=== PATIENT | female | born 1985 | race Caucasian/White ===

== ENCOUNTER 2020-08-07 20:48 | Emergency (ER) | payer MEDICAID, SELFPAY ==
[2020-08-07] VITALS (8 sets, daily range): BP systolic 128–151; BP diastolic 85–105; PULSE 86–127; RESP 18–28; TEMP 36.8; O2SAT 91–97; BMI 21.4
--- NOTE | 2020-08-07 21:03 | XRR_ITS ---
PROCEDURE INFORMATION: Exam: XR Chest, 1 View Exam date and time: 08/07/2020 9:09 PM Age: 34 years old Clinical indication: Shortness of breath; Right-sided chest pain; Additional info: SOB TECHNIQUE: Imaging protocol: XR of the chest Views: 1 view. COMPARISON: No relevant prior studies available. FINDINGS: Lungs: Lungs are clear bilaterally. Pleural space: No pleural effusion. No pneumothorax. Heart/Mediastinum: The cardiac silhouette and mediastinal contours are unremarkable. Bones/joints: Unremarkable for age. XR/XR chest 1V portable [id number] IMPRESSION: No acute cardiopulmonary process.
--- NOTE | 2020-08-07 21:13 | ECG_ITS ---
[facility] Test Date: 2020-08-07 Pat Name: Juliane Ball Department: Room: Gender: Female Bunch Maker: : 1985 Requested By: Azam Dee Order Number: [id number] Robbins MD: Mimi Cm M.D. Measurements Intervals [place] Rate: 122 P: 81 MD: 112 QRS: 79 QRSD: 88 T: 57 QT: 316 QTc: 451 Interpretive Statements SINUS TACHYCARDIA WITH SHORT MD INTERVAL ABNORMAL RHYTHM ECG No previous ECG available for comparison Electronically Signed On 08-07-2020 23:17:37 CENTER LEAD CONSULTANT by Mimi Cm M.D. [id number]
[2020-08-07 21:31] LABS: ABG PCO2 31.5 mmHg (35-45); ABG PH Result 7.46 (7.35-7.45); Arterial Blood Gas Hematocrit 43.9 % (37-47); Base Excess ABG -0.6 mmol/L (-2.0-2.0); Blood Gas Allen Test Pos; Blood Gas LPM 2.5 %; Blood Gas Sample Site Brachial, right; Blood Gas Sample Type Arterial; Carboxyhemoglobin 1.9 %THgb (0.4-20.1); HCO3 ABG 22.4 mmol/L (22-26); Methemoglobin 0.6 % (0.4-1.5); Oxygen Device NC; PO2 ABG 59.3 mmHg (80.0-100.0); Total Hemoglobin 14.3 g/dL (12-16)
--- NOTE | 2020-08-07 21:52 | W.ED.SOB ---
HPI - SOB/Dyspnea General: Chief Complaint: Shortness of Breath/Dyspnea Stated Complaint: CONFIRMED WALKING PNEUMONIA/O2 WAS 88% Time Seen by Provider: 08/07/20 21:03 History of Present Illness: HPI Narrative: 34-year-old type I diabetic with a history of walking pneumonia last week. She was Covid negative at that point. She was placed on Levaquin with improvement. Yesterday was her last dose. Today she had sudden onset of right-sided chest pain with significant shortness of breath. She presents with tachypnea and right-sided chest discomfort. MD elicited complaint: shortness of breath Pertinent past history: asthma Onset (ago): hour(s) Context: recent illness Severity: moderate Exacerbating factors: exertion, movement and coughing Relieving factors: oxygen Known history of: asthma Associated symptoms: Reports chest congestion, chest pain and cough; Deny abdominal pain, dizziness, fever(s), nausea or vomiting Review of Systems Const: Denies: fever(s) or chills Eyes: Denies: change in vision ENMT: Denies: odynophagia, swelling of lips/tongue, post nasal drip or sinus pain Card: Reports: chest pain Resp: Reports: chest congestion GI: Denies: abdominal pain, nausea or vomiting : Denies: dysuria or hematuria Musc: Reports: back pain; Denies: neck pain Skin/Breast: Denies: rash, pruritus or erythema Neuro: Denies: headache(s), dizziness or vertigo Psych: Denies: anxiety PFSH ED PFSH: Medical History (Updated 08/07/20 @ 23:53 by Nithin Adame MD) Asthma T1DM (type 1 diabetes mellitus) Surgical History (Updated 08/07/20 @ 23:54 by Nithin Adame MD) No pertinent past surgical history Social History (Updated 08/07/20 @ 23:53 by Nithin Adame MD) Smoking and tobacco status: current every day smoker Alcohol intake: never Substance/Drug Use: never Current occupational status: employed Current occupation: Works at [employer] Physical Exam Const: GENERAL APPEARANCE: cooperative and in distress ORIENTATION/CONSCIOUSNESS: Yes oriented to person, Yes oriented to place and Yes oriented to time HENMT: COMMON NORMALS: normocephalic, external ears normal and Normal external nose present HEAD & SCALP: normocephalic; no scalp tenderness FACE & SINUS: normal facial exam NOSE: Normal external nose present and No nasal discharge present EXTERNAL EAR: Yes external ears normal Eye: COMMON NORMALS: Equal, round and reactive pupils present, EOMs intact bilaterally and conjunctivae normal EYELID: eyelids normal CONJUNCTIVA: Yes conjunctivae normal PUPIL: Yes Equal, round and reactive pupils present Neck/C-Spine: GENERAL: No tracheal deviation Chest: COMMONS NORMALS: normal inspection of the chest CHEST: No tenderness Resp: EFFORT & INSPECTION: Yes tachypneic, Yes respiratory distress, No retractions, Yes uses accessory muscles and No tracheal deviation AUSCULTATION: rhonchi, no wheezes and diminished lung sounds Cardio: COMMON NORMALS: regular rhythm RATE: tachycardic RHYTHM: regular rhythm HEART SOUNDS: no murmurs PERIPHERAL PULSES: radial pulses present GI: INSPECTION: No abdominal distension AUSCULTATION: No Hyperactive bowel sounds present and No Hypoactive bowel sounds present PALPATION: No Guarding due to palpation present (GI) and No Rigid due to palpation PERCUSSION: no dullness to percussion and no tympanic to percussion Neuro: SENSORIUM/ORIENTATION: Yes oriented to person, Yes oriented to place and Yes oriented to time Psych: COMMON NORMALS: mental status grossly normal Skin: COMMON NORMALS: no rashes or lesions noted GENERAL SKIN EXAM: no rashes or lesions noted Course Consultations: Consultation #1: dena Vital Signs: Vital signs: Vital Signs Temperature 98.2 F 08/07/20 20:53 Pulse Rate 88 08/07/20 23:53 Respiratory Rate 21 H 08/07/20 23:53 Blood Pressure 128/98 08/07/20 23:30 Pulse Oximetry 97 08/07/20 23:53 MDM - SOB/Dyspnea MDM Narrative: Medical decision making narrative: 34-year-old type I diabetic with a history of asthma. She presents in mild respiratory distress, not moving a whole lot of air, and wheezing. She had tested Covid negative as an outpatient a week ago. Her rapid is negative here as well. White cell count is mildly elevated. Her electrolytes are benign. Her chest x-ray is negative. Her D-dimer is negative. Her troponin is negative. Her EKG shows no acute ST changes. She is requiring 5 L of oxygen at this point, now saturating 96%. She is mildly tachycardic. After nebulizer treatment she is using more, and moving more air. Solu-Medrol was ordered but the patient refused due to problems with her blood sugar. She will be admitted for asthma exacerbation with hypoxic respiratory failure. Lab Data: Labs: Lab Results 08/07/20 08/07/20 08/07/20 Range/Units 21:20 21:54 21:54 WBC 15.5 H (4.0-10.0) 10^3/ uL RBC 4.89 (4.1-5.3) 10^6/u L Hgb 14.2 (11.5-15.3) g/dL Hct 42.5 (37.0-47.0) % MCV 86.9 (81-99) fL MCH 29.0 (28.0-34.0) pg MCHC 33.4 (30.0-36.0) g/dL RDW 12.3 (12.1-15.1) % Plt Count 273 (130-400) 10^3/c mm MPV 10.5 H (7.4-10.4) fL Neut % (Auto) 54.7 % Lymph % (Auto) 17.4 % Scott % (Auto) 3.9 % Eos % (Auto) 23.1 % Baso % (Auto) 0.6 % Neut # (Auto) 8.49 H (1.8-7.7) 10^3/u L Lymph # (Auto) 2.7 (0.8-4.8) 10^3/u L Scott # (Auto) 0.6 (0.2-0.9) 10^3/u L Eos # (Auto) 3.6 H (0.0-0.8) 10^3/u L Baso # (Auto) 0.1 (0.0-0.1) 10^3/u L Nucleated RBC % (a uto) 0 % Nucleated RBCs # 0.0 /100WBC D-Dimer 0.46 (0-0.59) ug/mIFE U Specimen Type Arterial Sample Site Brachial, right ABG pH 7.46 H (7.35-7.45) ABG pCO2 31.5 L (35-45) mmHg ABG pO2 59.3 L (80.0-100.0) mmH g ABG HCO3 22.4 (22-26) mmol/L ABG Base Excess -0.6 (-2.0-2.0) mmol/ L Nir Test Pos Hematocrit 43.9 (37-47) % Hgb O2 Saturation 91.0 L (95-100) % Carboxyhemoglobin 1.9 (0.4-20.1) %THgb Methemoglobin 0.6 (0.4-1.5) % Total Hemoglobin 14.3 (12-16) g/dL O2 Delivery Device Nc O2 Liters/Min 2.5 % FiO2 28.0 % Lead Front End Developer ID [id number] Sodium (136-145) mmol/L Potassium (3.5-5.1) mmol/L Chloride (98-107) mmol/L Carbon Dioxide (22-29) mmol/L Anion Gap (5-19) BUN (6-20) mg/dL Creatinine (0.5-0.9) mg/dL GFR Calculation (90-130) mL/min Glucose (65-115) mg/dL Calculated Osmolal ity (285-295) mOsm/k g Lactic Acid (0.5-2.2) mmol/L Calcium (8.5-10.5) mg/dL Total Bilirubin (0.15-1.2) mg/dL AST (0-32) U/L ALT (0-33) U/L Alkaline Phosphata se (35-105) IU/L Troponin T Baselin e (0-10) ng/L NT-Pro-B Natriuret Pep (0-125) pg/mL Total Protein (6.6-8.7) g/dL Albumin (3.5-5.2) g/dL Globulin (1.3-4.6) g/dL SARS-CoV-2 Ag (Rap id) 08/07/20 08/07/20 08/07/20 Range/Units 21:54 21:54 21:54 WBC (4.0-10.0) 10^3/ uL RBC (4.1-5.3) 10^6/u L Hgb (11.5-15.3) g/dL Hct (37.0-47.0) % MCV (81-99) fL MCH (28.0-34.0) pg MCHC (30.0-36.0) g/dL RDW (12.1-15.1) % Plt Count (130-400) 10^3/c mm MPV (7.4-10.4) fL Neut % (Auto) % Lymph % (Auto) % Scott % (Auto) % Eos % (Auto) % Baso % (Auto) % Neut # (Auto) (1.8-7.7) 10^3/u L Lymph # (Auto) (0.8-4.8) 10^3/u L Scott # (Auto) (0.2-0.9) 10^3/u L Eos # (Auto) (0.0-0.8) 10^3/u L Baso # (Auto) (0.0-0.1) 10^3/u L Nucleated RBC % (a uto) % Nucleated RBCs # /100WBC D-Dimer (0-0.59) ug/mIFE U Specimen Type Sample Site ABG pH (7.35-7.45) ABG pCO2 (35-45) mmHg ABG pO2 (80.0-100.0) mmH g ABG HCO3 (22-26) mmol/L ABG Base Excess (-2.0-2.0) mmol/ L Nir Test Hematocrit (37-47) % Hgb O2 Saturation (95-100) % Carboxyhemoglobin (0.4-20.1) %THgb Methemoglobin (0.4-1.5) % Total Hemoglobin (12-16) g/dL O2 Delivery Device O2 Liters/Min % FiO2 % Lead Front End Developer ID Sodium 131 L (136-145) mmol/L Potassium 3.5 (3.5-5.1) mmol/L Chloride 98 (98-107) mmol/L Carbon Dioxide 22 (22-29) mmol/L Anion Gap 14.5 (5-19) BUN 7 (6-20) mg/dL Creatinine 0.7 (0.5-0.9) mg/dL GFR Calculation 95.8 (90-130) mL/min Glucose 287 H (65-115) mg/dL Calculated Osmolal ity 280 L (285-295) mOsm/k g Lactic Acid 1.1 (0.5-2.2) mmol/L Calcium 9.5 (8.5-10.5) mg/dL Total Bilirubin 0.4 (0.15-1.2) mg/dL AST 12 (0-32) U/L ALT 8 (0-33) U/L Alkaline Phosphata se 58 (35-105) IU/L Troponin T Baselin e 6 (0-10) ng/L NT-Pro-B Natriuret Pep 108 (0-125) pg/mL Total Protein 7.2 (6.6-8.7) g/dL Albumin 4.2 (3.5-5.2) g/dL Globulin 3.0 (1.3-4.6) g/dL SARS-CoV-2 Ag (Rap id) 08/07/20 08/07/20 Range/Units 22:03 22:03 WBC (4.0-10.0) 10^3/ uL RBC (4.1-5.3) 10^6/u L Hgb (11.5-15.3) g/dL Hct (37.0-47.0) % MCV (81-99) fL MCH (28.0-34.0) pg MCHC (30.0-36.0) g/dL RDW (12.1-15.1) % Plt Count (130-400) 10^3/c mm MPV (7.4-10.4) fL Neut % (Auto) % Lymph % (Auto) % Scott % (Auto) % Eos % (Auto) % Baso % (Auto) % Neut # (Auto) (1.8-7.7) 10^3/u L Lymph # (Auto) (0.8-4.8) 10^3/u L Scott # (Auto) (0.2-0.9) 10^3/u L Eos # (Auto) (0.0-0.8) 10^3/u L Baso # (Auto) (0.0-0.1) 10^3/u L Nucleated RBC % (a uto) % Nucleated RBCs # /100WBC D-Dimer (0-0.59) ug/mIFE U Specimen Type Sample Site ABG pH (7.35-7.45) ABG pCO2 (35-45) mmHg ABG pO2 (80.0-100.0) mmH g ABG HCO3 (22-26) mmol/L ABG Base Excess (-2.0-2.0) mmol/ L Nir Test Hematocrit (37-47) % Hgb O2 Saturation (95-100) % Carboxyhemoglobin (0.4-20.1) %THgb Methemoglobin (0.4-1.5) % Total Hemoglobin (12-16) g/dL O2 Delivery Device O2 Liters/Min % FiO2 % Lead Front End Developer ID Sodium (136-145) mmol/L Potassium (3.5-5.1) mmol/L Chloride (98-107) mmol/L Carbon Dioxide (22-29) mmol/L Anion Gap (5-19) BUN (6-20) mg/dL Creatinine (0.5-0.9) mg/dL GFR Calculation (90-130) mL/min Glucose (65-115) mg/dL Calculated Osmolal ity (285-295) mOsm/k g Lactic Acid (0.5-2.2) mmol/L Calcium (8.5-10.5) mg/dL Total Bilirubin (0.15-1.2) mg/dL AST (0-32) U/L ALT (0-33) U/L Alkaline Phosphata se (35-105) IU/L Troponin T Baselin e (0-10) ng/L NT-Pro-B Natriuret Pep (0-125) pg/mL Total Protein (6.6-8.7) g/dL Albumin (3.5-5.2) g/dL Globulin (1.3-4.6) g/dL SARS-CoV-2 Ag (Rap id) Cancelled Negative Discharge Plan Discharge Prescriptions: No Action NOVOLOG See Rx Instructions .ROUTE .COMPLEX RF: 0 Lantus U-100 Insulin 100 unit/mL solution 19 unit SUBCUT DAILY RF: 0 albuterol sulfate [ProAir HFA] 90 mcg/actuation HFA aerosol inhaler 2 puff INHALATION QID PRN (Reason: shortness of breath or wheezing) Qty: 8.5 RF: 0 Vitamin D3 1 tab PO DAILY RF: 0 Coding Level of Care Code ED Log Inspector for Chg Fwd Exam Comprehensive
--- NOTE | 2020-08-07 22:08 | PC.NURSE ---
Patient concerned about medication causing hyperglycemia. Physician notified.
[2020-08-07 22:31] LABS: Lactic Sepsis W/Reflex 1.1 mmol/L (0.5-2.2)
[2020-08-07 22:34] LABS: Troponin(5th) Baseline 6 ng/L (0-10)
[2020-08-07 22:38] LABS: Basophils # 0.1 10^3/uL (0.0-0.1); Basophils % 0.6 %; Eosinophils # 3.6 10^3/uL (0.0-0.8); Eosinophils % 23.1 %; Hematocrit 42.5 % (37.0-47.0); Hemoglobin 14.2 g/dL (11.5-15.3); Lymphocytes # 2.7 10^3/uL (0.8-4.8); Lymphocytes % 17.4 %; Mean Corpuscular HGB Conc 33.4 g/dL (30.0-36.0); Mean Corpuscular Volume 86.9 fL (81-99); Mean Platelet Volume 10.5 fL (7.4-10.4); Monocytes # 0.6 10^3/uL (0.2-0.9); Monocytes % 3.9 %; Neutrophils # 8.49 10^3/uL (1.8-7.7); Neutrophils % 54.7 %; Nucleated Red Blood Cells % 0 %; Platelet Count 273 10^3/cmm (130-400); Red Blood Count 4.89 10^6/uL (4.1-5.3); Red Cell Distribution Width 12.3 % (12.1-15.1); White Blood Count 15.5 10^3/uL (4.0-10.0)
[2020-08-07 22:43] LABS: Alanine Aminotransferase 8 U/L (0-33); Albumin Level 4.2 g/dL (3.5-5.2); Alkaline Phosphatase 58 IU/L (35-105); Anion Gap 14.5 (5-19); Aspartate Amino Transferase 12 U/L (0-32); Blood Urea Nitrogen 7 mg/dL (6-20); Calcium 9.5 mg/dL (8.5-10.5); Carbon Dioxide 22 mmol/L (22-29); Chloride 98 mmol/L (98-107); Glomerular Filtration Rate 95.8 mL/min (90-130); Glucose 287 mg/dL (65-115); NT Pro B Type Natriuretic Pept 108 pg/mL (0-125); Osmolality Calculated 280 mOsm/kg (285-295); Potassium 3.5 mmol/L (3.5-5.1); Sodium 131 mmol/L (136-145); Total Bilirubin 0.4 mg/dL (0.15-1.2); Total Protein 7.2 g/dL (6.6-8.7)
[2020-08-07 22:51] LABS: SARS Covid-2 Antigen Negative (Negative)
[2020-08-07 23:11] LABS: D Dimer 0.46 ug/mIFEU (0-0.59)
--- NOTE | 2020-08-07 23:13 | ECG_ITS ---
[facility] Test Date: 2020-08-07 Pat Name: Juliane Ball Department: Room: Gender: Female Vice Chairman: : 1985 Requested By: Azam Dee Order Number: [id number] Robbins MD: Clifton Phillips M.D. Measurements Intervals [place] Rate: 96 P: 77 SD: 127 QRS: 77 QRSD: 85 T: 58 QT: 341 QTc: 431 Interpretive Statements SINUS RHYTHM WITH SINUS ARRHYTHMIA POSSIBLE LEFT ATRIAL ENLARGEMENT [-0.1mV P WAVE IN V1/V2] Compared to ECG 08/07/2020 21:18:36 Sinus tachycardia no longer present Short SD interval no longer present Electronically Signed On 08-09-2020 19:20:35 BOX TRUCK WASHER by Clifton Phillips M.D. [id number]
[2020-08-07] MEDS: ipratropium-albuterol 3 mL Neb INHALATION (23:42)
--- NOTE | 2020-08-07 23:51 | PM.HP ---
Providers/Chief Complaint Primary Care Provider: Bernadine Barajas NP Chief Complaint: CONFIRMED WALKING PNEUMONIA/O2 WAS 88% History of Present Illness Juliane Ball is a 34 year old female Medications/Allergies Home Medications Medication Instructions Recorded Confirmed Last Taken Type NOVOLOG See Rx Instructions .ROUTE .COMPLEX 12/28/19 08/07/20 08/07/20 History insulin glargine 100 unit/mL 19 unit SUBCUT DAILY ml 12/28/19 08/07/20 08/06/20 History subcutaneous solution albuterol sulfate 90 mcg/actuation 2 puff INHALATION QID PRN #8.5 gm 07/20/20 08/07/20 08/07/20 Rx aerosol inhaler Vitamin D3 1 tab PO DAILY 08/07/20 08/07/20 08/06/20 History Allergies Allergy/AdvReac Type Severity Reaction Status Date / Time levofloxacin Allergy ALGY-Hives Verified 08/07/20 21:20 PFSH Acute PFSH: Medical History (Updated 08/07/20 @ 23:53 by Nithin Adame MD) Asthma T1DM (type 1 diabetes mellitus) Surgical History (Updated 08/07/20 @ 23:54 by Nithin Adame MD) No pertinent past surgical history Social History (Updated 08/07/20 @ 23:53 by Nithin Adame MD) Smoking and tobacco status: current every day smoker Alcohol intake: never Substance/Drug Use: never Current occupational status: employed Current occupation: Works at [employer] Vitals/I&O/Wt Last Vital Signs Temp 98.2 F 08/07/20 20:53 Pulse 86 08/07/20 23:42 Resp 20 H 08/07/20 23:42 BP 128/98 08/07/20 23:30 Pulse Ox 94 08/07/20 23:42 Weight last 48 hrs Weight 65.771 kg Data : 08/07/20 21:54 08/07/20 21:54 Micro: Microbiology 08/07/20 22:43 Blood Culture - Preliminary Blood SPECIMEN COLLECTED 08/07/20 22:43 Blood Culture - Preliminary Blood SPECIMEN COLLECTED Coding Level of Care Code Acute Golf Course Keeper for Niyah Acuña
[2020-08-08] VITALS: BP 139/108; PULSE 107; RESP 22; O2SAT 91
[2020-08-08 00:23] LABS: Troponin 5 2HR Delta 0 ABS# (0-10)
[2020-08-08 01:00] VITALS: BP 126/86; PULSE 87; RESP 16; O2SAT 94
[2020-08-08] MEDS: ipratropium-albuterol 3 mL Neb INHALATION (01:44)
[2020-08-08 01:45] VITALS: PULSE 88; RESP 18; O2SAT 90
[2020-08-08 02:06] VITALS: BP 111/85; PULSE 101; RESP 17; TEMP 36.8; O2SAT 93
[2020-08-10 03:00] LABS: Coronavirus Lab Test PTC Negative
--- NOTE | 2020-08-10 08:45 | PC.NURSE ---
notified pt of negative COVID results
== END 2020-08-08 02:06 | disposition left against medical advice (07) ==
PROVIDERS: Emergency Provider Emergency Medicine; PCP Nurse Practitioner
DX: J96.21 Acute and chronic respiratory failure with hypoxia (principal); J45.901 Unspecified asthma with (acute) exacerbation; E10.8 Type 1 diabetes mellitus with unspecified complications; Z79.4 Long term (current) use of insulin; F17.200 Nicotine dependence, unspecified, uncomplicated; Z53.29 Procedure and treatment not carried out because of patient's decision for other reasons
CPT/HCPCS: 12345; 36415; 36600; 71045; 80053; 82805; 83605; 83880; 84484; 85025; 85378; 87040; 87426; 87635; 93005; 94640; 96374; 99283; 99284

== ENCOUNTER → 2021-07-06 14:11 | Outpatient (BNVA) | payer MEDICAID, SELFPAY | PROVIDERS: PCP Nurse Practitioner; Referring Provider Nurse Practitioner; Visit Provider Internal Medicine | DX: E10.9 Type 1 diabetes mellitus without complications (principal); Z79.4 Long term (current) use of insulin; F17.210 Nicotine dependence, cigarettes, uncomplicated | CPT/HCPCS: 99204 ==

== ENCOUNTER → 2021-07-26 10:45 | Outpatient (BNVA) | payer MEDICAID, SELFPAY | PROVIDERS: PCP Nurse Practitioner; Visit Provider Specialist | DX: S69.92XA Unspecified injury of left wrist, hand and finger(s), initial encounter (principal); M89.8X3 Other specified disorders of bone, forearm; W01.0XXA Fall on same level from slipping, tripping and stumbling without subsequent striking against object, initial encounter | CPT/HCPCS: 73090; 73110 ==

== ENCOUNTER 2021-07-26 11:36 | Outpatient (CLI) | payer MEDICAID, SELFPAY | END 2021-07-26 11:37 | disposition home or self-care (01) | LOC: SPT 13:51 | PROVIDERS: PCP Nurse Practitioner; Visit Provider Specialist | DX: Z46.89 Encounter for fitting and adjustment of other specified devices (principal) | CPT/HCPCS: L3908 ==

== ENCOUNTER → 2021-09-29 09:02 | Outpatient (BNVA) | payer MEDICAID, SELFPAY | PROVIDERS: PCP Nurse Practitioner; Visit Provider Internal Medicine | DX: E10.9 Type 1 diabetes mellitus without complications (principal); E16.0 Drug-induced hypoglycemia without coma; T38.3X5A Adverse effect of insulin and oral hypoglycemic [antidiabetic] drugs, initial encounter; F17.200 Nicotine dependence, unspecified, uncomplicated; Z79.4 Long term (current) use of insulin | CPT/HCPCS: 99214 ==

== ENCOUNTER → 2021-10-13 09:43 | Outpatient (BNVA) | payer MEDICAID, SELFPAY | PROVIDERS: PCP Nurse Practitioner; Visit Provider Internal Medicine | DX: E10.9 Type 1 diabetes mellitus without complications (principal); E16.0 Drug-induced hypoglycemia without coma; T38.3X5A Adverse effect of insulin and oral hypoglycemic [antidiabetic] drugs, initial encounter; Z79.4 Long term (current) use of insulin; F17.210 Nicotine dependence, cigarettes, uncomplicated | CPT/HCPCS: 99214 ==

== ENCOUNTER → 2022-01-27 10:11 | Outpatient (BNVA) | payer MEDICAID, SELFPAY | PROVIDERS: PCP Nurse Practitioner; Visit Provider Internal Medicine | DX: E10.649 Type 1 diabetes mellitus with hypoglycemia without coma (principal); E10.65 Type 1 diabetes mellitus with hyperglycemia; T38.3X5A Adverse effect of insulin and oral hypoglycemic [antidiabetic] drugs, initial encounter; E16.0 Drug-induced hypoglycemia without coma; E03.9 Hypothyroidism, unspecified; Z79.4 Long term (current) use of insulin; F17.200 Nicotine dependence, unspecified, uncomplicated | CPT/HCPCS: 99214 ==

== ENCOUNTER 2022-01-28 17:19 | Emergency (ER) | payer MEDICAID, SELFPAY ==
[2022-01-28 17:26] VITALS: BP 142/96; PULSE 136; RESP 20; TEMP 37.4; O2SAT 98; BMI 26.2
--- NOTE | 2022-01-28 17:36 | ED_ITS ---
HPI - General Adult General: Chief complaint: General Medical Stated complaint: Bloodsugars are irregular, shaking real bad Time Seen by Provider: 01/28/22 17:35 History of Present Illness: Ms. Ball is a 36-year-old lady with significant past medical history of type 1 diabetes who presents to the emergency department due to uncontrolled blood glucose and generalized illness. She first noticed symptoms starting this morning after which she woke up. She has felt shaky all day and generalized illness. She has had increased thirst and urination. She has noted blood sugars in the 400 range which is atypical of her baseline which is more in the low 200 range. Despite increasing insulin she has not had significant leaf. The shakiness is more typical of low blood sugars and she has not had symptoms like this with high blood sugar that she can recall. No recent hospitalizations or prior hospitalizations for diabetic issues. No sick contacts. Denies focal infectious symptoms. Intensity of symptoms is moderate to severe. Course has persisted. No other specific cirilo nges in health, exacerbating, or alleviating factors identified. 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 Mother No problems noted. Social History Smoking and tobacco status: current every day smoker Quit status (tobacco): not considering quitting Second hand smoke exposure: Yes Smoking risk assessment/counseling performed?: Yes Alcohol intake: never Desire information about alcohol rehabilitation?: No Counseling given: Yes Desire information about substance/drug rehabilitation?: No Counseling given: No Adopted: No Caregiver/support person: No Lives independently: Yes Household members: spouse Housing: House Marital status: Number of children: 1 Highest education level completed: High School Graduate Current occupational status: employed Current occupation: Works at [employer] History of recent travel: No Physical Exam Const: COMMON NORMALS: alert GENERAL APPEARANCE: cooperative, well developed and ill appearing (moderately) HENMT: COMMON NORMALS: normocephalic and atraumatic HEAD & SCALP: normocephalic and atraumatic Eye: COMMON NORMALS: conjunctivae normal CONJUNCTIVA: Yes conjunctivae normal SCLERA: sclerae normal Neck/C-Spine: COMMON NORMALS: supple GENERAL: Yes trachea midline Resp: COMMON NORMALS: clear to auscultation bilaterally EFFORT & INSPECTION: Yes able to speak in complete sentences AUSCULTATION: clear to auscultation bilaterally Cardio: COMMON NORMALS: regular rhythm RATE: tachycardic RHYTHM: regular rhythm GI: COMMON NORMALS: Soft to palpation PALPATION: Yes Soft to palpation and No Tenderness to palpation present (GI) PERCUSSION: normal to percussion Extremity: GENERAL: Yes normal exam except as noted and No edema Neuro: COMMON NORMALS: moves all extremities SENSORIUM/ORIENTATION: Yes alert and No Orientation impaired Psych: COMMON NORMALS: mental status grossly normal and Normal thought process present THOUGHT PROCESS: Normal thought process present Course ED course: - Patient was seen and evaluated by me at bedside - Patient placed on cardiac monitors, IV access obtained - Initial evaluation notable for exam as above. Tachycardic, ill-appearing. - Labs and xrays personally interpreted by me. EKG reveals sinus tachycardia with no STEMI. -IV fluids ordered - Labs notable for hyperglycemia without evidence of DKA - Imaging notable for no lobar consolidation or pneumothorax - Apparently the patient had verbal altercation with nurse and ripped out her IV and ambulated from the emergency department. I was not notified at time of patient leaving and therefore was unable to further discuss with patient. - Patient left prior to treatment completion/AGAINST MEDICAL ADVICE. Vital Signs: Vital signs: Vital Signs Temperature 99.4 F 01/28/22 17:26 Pulse Rate 136 H 01/28/22 17:26 Respiratory Rate 20 H 01/28/22 17:26 Blood Pressure 142/96 01/28/22 17:26 Pulse Oximetry 98 01/28/22 17:26 MDM - General Adult Medical Decision Making 36 old lady with history of type 1 diabetes presenting with high blood sugars and generalized illness. Patient tachycardic and moderately ill-appearing. Unfortunately patient became upset and left prior to treatment completion. Medical Records I reviewed the patient's medical records. Lab Data I reviewed the patient's lab results. : 01/28/22 18:20 01/28/22 18:20 Radiology Impressions Chest X-Ray 01/28/22 17:51 IMPRESSION: No acute findings. Laboratory Results WBC 9.5 10^3/uL (4.0-10.0) 01/28/22 18:20 RBC 5.22 10^6/uL (4.1-5.3) 01/28/22 18:20 Hgb 14.9 g/dL (11.5-15.3) 01/28/22 18:20 Hct 43.9 % (37.0-47.0) 01/28/22 18:20 MCV 84.1 fl (81-99) 01/28/22 18:20 MCH 28.5 pg (28.0-34.0) 01/28/22 18:20 MCHC 33.9 g/dL (30.0-36.0) 01/28/22 18:20 RDW 12.3 % (12.1-15.1) 01/28/22 18:20 Plt Count 271 10^3/cmm (130-400) 01/28/22 18:20 MPV 10.9 fL (7.4-10.4) H 01/28/22 18:20 Neut % (Auto) 67.5 % 01/28/22 18:20 Lymph % (Auto) 26.1 % 01/28/22 18:20 Henry % (Auto) 4.5 % 01/28/22 18:20 Eos % (Auto) 1.1 % 01/28/22 18:20 Baso % (Auto) 0.5 % 01/28/22 18:20 Neut # (Auto) 6.38 10^3/uL (1.8-7.7) 01/28/22 18:20 Lymph # (Auto) 2.5 10^3/uL (0.8-4.8) 01/28/22 18:20 Henry # (Auto) 0.4 10^3/uL (0.2-0.9) 01/28/22 18:20 Eos # (Auto) 0.1 10^3/uL (0.0-0.8) 01/28/22 18:20 Baso # (Auto) 0.1 10^3/uL (0.0-0.1) 01/28/22 18:20 Nucleated RBC % (auto) 0 % 01/28/22 18:20 Nucleated RBCs # 0.0 /100WBC 01/28/22 18:20 Specimen Type Arterial 01/28/22 18:14 Sample Site Brachial, right 01/28/22 18:14 ABG pH 7.46 (7.35-7.45) H 01/28/22 18:14 ABG pCO2 32.8 mmHg (35-45) L 01/28/22 18:14 ABG pO2 87.8 mmHg (80.0-100.0) 01/28/22 18:14 ABG HCO3 23.1 mmol/L (22-26) 01/28/22 18:14 ABG Base Excess -0.1 mmol/L (-2.0-2.0) 01/28/22 18:14 Nir Test Pos 01/28/22 18:14 Hematocrit 42.4 % (37-47) 01/28/22 18:14 O2 Delivery Device Room air 01/28/22 18:14 FiO2 21.0 % 01/28/22 18:14 Community Artist ID Monro 01/28/22 18:14 Sodium 134 mmol/L (136-145) L 01/28/22 18:20 Potassium 4.4 mmol/L (3.5-5.1) 01/28/22 18:20 Chloride 98 mmol/L (98-107) 01/28/22 18:20 Carbon Dioxide 23 mmol/L (22-29) 01/28/22 18:20 Anion Gap 17.4 (5-19) 01/28/22 18:20 BUN 6 mg/dL (6-20) 01/28/22 18:20 Creatinine 0.6 mg/dL (0.5-0.9) 01/28/22 18:20 GFR Calculation 113.1 mL/min (90-130) 01/28/22 18:20 Glucose 322 mg/dL (65-115) H 01/28/22 18:20 POC Glucose 339 mg/dL (70-110) H 01/28/22 17:35 Calculated Osmolality 288 mOsm/kg (285-295) 01/28/22 18:20 Calcium 9.9 mg/dL (8.5-10.5) 01/28/22 18:20 Magnesium 2.0 mg/dL (1.7-2.3) 01/28/22 18:20 Total Bilirubin 0.4 mg/dL (0.15-1.2) 01/28/22 18:20 AST 13 U/L (0-32) 01/28/22 18:20 ALT 10 U/L (0-33) 01/28/22 18:20 Alkaline Phosphatase 60 IU/L (35-105) 01/28/22 18:20 Total Protein 7.7 g/dL (6.6-8.7) 01/28/22 18:20 Albumin 4.6 g/dL (3.5-5.2) 01/28/22 18: Globulin 3.1 g/dL (1.3-4.6) 01/28/22 18:20 HCG, Qual Negative (Negative) 01/28/22 18:30 Urine Color Yellow (Yellow) 01/28/22 18:30 Urine Appearance Clear (CLEAR) 01/28/22 18:30 Urine pH 6.5 (5-7) 01/28/22 18:30 Ur Specific Mather 1.005 (1.005-1.030) 01/28/22 18:30 Urine Protein Neg (Negative) 01/28/22 18:30 Urine Glucose (UA) 4+ (Normal) H 01/28/22 18:30 Urine Ketones Negative (Negative) 01/28/22 18:30 Urine Blood Neg (Negative) 01/28/22 18:30 Urine Nitrate Negative (Negative) 01/28/22 18:30 Urine Bilirubin Neg (Negative) 01/28/22 18:30 Urine Urobilinogen Norm mg/dL (Negative) 01/28/22 18:30 Ur Leukocyte Esterase Negative (Negative) 01/28/22 18:30 Serum Ketones Negative (Negative) 01/28/22 18:20 Discharge Plan Discharge Patient Disposition: Left Against Medical Advice Clinical Impression: T1DM (type 1 diabetes mellitus), Hyperglycemia Condition: Stable Prescriptions: No Action NOVOLOG See Rx Instructions .ROUTE .COMPLEX 0RF Rx Instructions: injection ;Sliding Scale pt states she used 3 units today. Lantus U-100 Insulin 100 unit/mL solution 32 unit SUBCUT DAILY 0RF baclofen 5 mg tablet 5 mg PO DAILY 0RF (DME) Dexcom G6 Control Specialist Misc See Rx Instructions .Route Qty: 1 0RF Rx Instructions: Check BS 4-6 times a day. (DME) Lace up arm brace See Rx Instructions .Route .MEDSUPPLY Qty: 1 0RF Rx Instructions: As directed meloxicam 15 mg tablet 15 mg PO DAILY Qty: 30 0RF montelukast 10 mg tablet 10 mg PO DAILY 0RF Lantus Solostar U-100 Insulin 100 unit/mL (3 mL) insulin pen 32 unit SUBCUT DAILY Qty: 30 3RF Rx Instructions: Inject 32 units subcut daily (DME) Dexcom G6 Sensor Device See Rx Instructions .Route Qty: 3 3RF Rx Instructions: Change every 10 days. (DME) Dexcom G6 Transmitter Device See Rx Instructions .Route Qty: 1 3RF Rx Instructions: As directed Vitamin D3 1 tab PO DAILY 0RF Referrals: Bernadine Barajas NP [Primary Care Provider] - Coding Level of Care Code ED Wick Tender for Niyah Acuña
[2022-01-28 17:37] LABS: Glucose Point of Care 339 mg/dL (70-110)
--- NOTE | 2022-01-28 17:51 | XRR_ITS ---
PROCEDURE INFORMATION: Exam: XR Chest Exam date and time: 01/28/2022 6:30 PM Age: 36 years old Clinical indication: Other: Irregular bloodsugar; Additional info: Tachycardia TECHNIQUE: Imaging protocol: XR of the chest. Views: 1 view. COMPARISON: CR XR chest 1V portable [id number] 08/07/2020 9:05 PM FINDINGS: Lungs: Unremarkable. No consolidation. Pleural spaces: Unremarkable. No pleural effusion. No pneumothorax. Heart/Mediastinum: Unremarkable. No cardiomegaly. Bones/joints: Unremarkable. XR/XR chest 1V portable [id number] IMPRESSION: No acute findings.
--- NOTE | 2022-01-28 17:51 | ECG_ITS ---
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 Measurements Intervals Erwin Rate: 103 P: 67 CO: 130 QRS: 62 QRSD: 88 T: 19 QT: 331 QTc: 435 Interpretive Statements SINUS TACHYCARDIA Compared to ECG 08/07/2020 23:53:09 Sinus rhythm no longer present Sinus arrhythmia no longer present Electronically Signed On 01-28-2022 20:40:28 CDT by Clifton Phillips M.D. [email or web address] health st[facility] joseph warren hospitalHivext [email or web address]/[id number]
[2022-01-28] MEDS: sodium chloride 0.9% 1,000 ML 999 ML IV (18:25)
[2022-01-28 18:27] LABS: ABG PCO2 32.8 mmHg (35-45); ABG PH Result 7.46 (7.35-7.45); Arterial Blood Gas Hematocrit 42.4 % (37-47); Base Excess ABG -0.1 mmol/L (-2.0-2.0); Blood Gas Allen Test Pos; Blood Gas Operator Identificat MONRO; Blood Gas Sample Site Brachial, right; Blood Gas Sample Type Arterial; HCO3 ABG 23.1 mmol/L (22-26); Oxygen Device ROOM AIR; PO2 ABG 87.8 mmHg (80.0-100.0)
[2022-01-28 18:31] LABS: Basophils # 0.1 10^3/uL (0.0-0.1); Basophils % 0.5 %; Eosinophils # 0.1 10^3/uL (0.0-0.8); Eosinophils % 1.1 %; Hematocrit 43.9 % (37.0-47.0); Hemoglobin 14.9 g/dL (11.5-15.3); Lymphocytes # 2.5 10^3/uL (0.8-4.8); Lymphocytes % 26.1 %; Mean Corpuscular HGB Conc 33.9 g/dL (30.0-36.0); Mean Corpuscular Hemoglobin 28.5 pg (28.0-34.0); Mean Corpuscular Volume 84.1 fl (81-99); Mean Platelet Volume 10.9 fL (7.4-10.4); Monocytes # 0.4 10^3/uL (0.2-0.9); Monocytes % 4.5 %; Neutrophils # 6.38 10^3/uL (1.8-7.7); Neutrophils % 67.5 %; Nucleated Red Blood Cells % 0 %; Platelet Count 271 10^3/cmm (130-400); Red Blood Count 5.22 10^6/uL (4.1-5.3); Red Cell Distribution Width 12.3 % (12.1-15.1); White Blood Count 9.5 10^3/uL (4.0-10.0)
[2022-01-28 18:40] LABS: Ketone (Acetest) Serum Negative (Negative)
[2022-01-28 18:49] LABS: Alanine Aminotransferase 10 U/L (0-33); Albumin Level 4.6 g/dL (3.5-5.2); Alkaline Phosphatase 60 IU/L (35-105); Anion Gap 17.4 (5-19); Aspartate Amino Transferase 13 U/L (0-32); Blood Urea Nitrogen 6 mg/dL (6-20); Calcium 9.9 mg/dL (8.5-10.5); Carbon Dioxide 23 mmol/L (22-29); Chloride 98 mmol/L (98-107); Globulin 3.1 g/dL (1.3-4.6); Glomerular Filtration Rate 113.1 mL/min (90-130); Glucose 322 mg/dL (65-115); Osmolality Calculated 288 mOsm/kg (285-295); Potassium 4.4 mmol/L (3.5-5.1); Sodium 134 mmol/L (136-145); Total Bilirubin 0.4 mg/dL (0.15-1.2); Total Protein 7.7 g/dL (6.6-8.7)
[2022-01-28 18:50] LABS: Add Urine Microscopic? NO; Charge for UA Resulting for Rev
[2022-01-28 19:05] LABS: Bilirubin Urine Neg (Negative); Blood Urine Neg (Negative); Glucose Urine UA 4+ (Normal); Ketones Urine Negative (Negative); Leukocyte Esterase Urine Negative (Negative); Nitrate Urine Negative (Negative); Protein Urine Neg (Negative); Specific Gravity, Urine 1.005 (1.005-1.030); Urine Appearance Clear (CLEAR); Urine Color Yellow (Yellow); Urobilinogen Urine Norm (Negative); pH Urine 6.5 (5-7)
--- NOTE | 2022-01-28 19:11 | PC.NURSE ---
Lab went to patients room to obtain blood for additional lab when the patient got snotty and was refusing. Nurse went to room and patient was refusing and ask when she was going to get result, nurse stated that the initial lab work takes about a hour and she needed to give us the time required. The patient grabbed the IV and ripped it out of her right AC and stated she didn't have to put up with this shit and requested to be let out of the ER. Patient is A&Ox4 and spouse was with her.
[2022-01-28 19:21] LABS: HCG Qualitative Urine. Negative (Negative)
== END 2022-01-28 19:15 | disposition left against medical advice (07) ==
PROVIDERS: Emergency Provider Emergency Medicine; PCP Nurse Practitioner
DX: E10.65 Type 1 diabetes mellitus with hyperglycemia (principal); E06.3 Autoimmune thyroiditis; E03.9 Hypothyroidism, unspecified; Z79.4 Long term (current) use of insulin
CPT/HCPCS: 36416; 36600; 71045; 80053; 81003; 81025; 82009; 82803; 82962; 83735; 85025; 87040; 93005; 96360; 99284; J7030

== ENCOUNTER → 2022-04-11 12:06 | Outpatient (BNVA) | payer MEDICAID, SELFPAY | PROVIDERS: PCP Nurse Practitioner; Visit Provider Internal Medicine | DX: E10.649 Type 1 diabetes mellitus with hypoglycemia without coma (principal); E16.0 Drug-induced hypoglycemia without coma; T38.3X5A Adverse effect of insulin and oral hypoglycemic [antidiabetic] drugs, initial encounter; E03.9 Hypothyroidism, unspecified; F17.200 Nicotine dependence, unspecified, uncomplicated; Z79.4 Long term (current) use of insulin | CPT/HCPCS: 99214 ==

== ENCOUNTER → 2022-05-11 13:54 | Outpatient (BNVA) | payer MEDICAID, SELFPAY | PROVIDERS: PCP Nurse Practitioner; Visit Provider Internal Medicine | DX: E10.649 Type 1 diabetes mellitus with hypoglycemia without coma (principal); E16.0 Drug-induced hypoglycemia without coma; T38.3X5A Adverse effect of insulin and oral hypoglycemic [antidiabetic] drugs, initial encounter; E03.9 Hypothyroidism, unspecified; Z79.4 Long term (current) use of insulin; F17.200 Nicotine dependence, unspecified, uncomplicated | CPT/HCPCS: 99214 ==

== ENCOUNTER 2024-01-10 11:40 | Outpatient (CLI) | payer MEDICAID, SELFPAY ==
[2024-01-10 12:29] LABS: Estmated Average Glucose 180; Hemoglobin A1C 7.9 % (4.0-6.0)
[2024-01-10 12:38] LABS: Alanine Aminotransferase 11 U/L (0-33); Albumin Level 4.2 g/dL (3.5-5.2); Alkaline Phosphatase 51 U/L (35-105); Anion Gap 11.7 (5-19); Aspartate Amino Transferase 15 U/L (0-32); Blood Urea Nitrogen 7 mg/dL (6-20); Calcium 9.2 mg/dL (8.5-10.5); Carbon Dioxide 29 mmol/L (22-29); Chloride 101 mmol/L (98-107); Chol HDL Ratio 2.65 mg/dL (0.0-4.40); Cholesterol 191 mg/dL (0-200); Free T4 Free Thyroxine 1.13 ng/dL (0.82-1.77); Globulin 3.2 g/dL (1.3-4.6); Glomerular Filtration Rate 93.6 mL/min (90-130); Glucose 241 mg/dL (65-115); HDL Cholesterol 72 mg/dL (60-100); LDL Cholesterol Calculated 102 mg/dL (50-129); LDL HDL Ratio 1.42 RATIO (0.00-3.22); Osmolality Calculated 290 mOsm/kg (285-295); Potassium 4.7 mmol/L (3.5-5.1); Sodium 137 mmol/L (136-145); Thyroid Stimulating Hormone 3.78 uIU/mL (0.27-4.20); Total Bilirubin 0.5 mg/dL (0.15-1.2); Total Protein 7.4 g/dL (6.6-8.7); Triglycerides 86 mg/dL (0-150)
== END 2024-01-10 11:41 | disposition home or self-care (01) ==
LOC: LAB 11:44
PROVIDERS: PCP Nurse Practitioner; Visit Provider Internal Medicine
DX: E10.9 Type 1 diabetes mellitus without complications (principal); E03.8 Other specified hypothyroidism; E06.3 Autoimmune thyroiditis
CPT/HCPCS: 36415; 80053; 80061; 83036; 84439; 84443

== ENCOUNTER 2025-05-12 09:13 | Outpatient (CLI) | payer OTHER, SELFPAY ==
[2025-05-12 10:06] LABS: Creatinine Urine, Random 181 mg/dL (28-217); Microalbum Creatinine Ratio Ur 6 mg/dL (0-20)
[2025-05-12 10:30] LABS: Estmated Average Glucose 154; Hemoglobin A1C 7.0 % (4.0-6.0)
[2025-05-12 10:31] LABS: Alanine Aminotransferase 11 U/L (0-33); Albumin Level 4.6 g/dL (3.5-5.2); Alkaline Phosphatase 43 U/L (35-105); Anion Gap 15.2 (5-19); Aspartate Amino Transferase 19 U/L (0-32); Blood Urea Nitrogen 8 mg/dL (6-20); Calcium 9.2 mg/dL (8.5-10.5); Carbon Dioxide 26 mmol/L (22-29); Chloride 104 mmol/L (98-107); Cholesterol 191 mg/dL (0-200); Free T4 Free Thyroxine 0.91 ng/dL (0.82-1.77); Globulin 2.8 g/dL (1.3-4.6); Glucose 210 mg/dL (65-115); HDL Cholesterol 73 mg/dL (60-100); Osmolality Calculated 297 mOsm/kg (285-295); Potassium 4.2 mmol/L (3.5-5.1); Sodium 141 mmol/L (136-145); Thyroid Stimulating Hormone 6.73 uIU/mL (0.27-4.20); Total Protein 7.4 g/dL (6.6-8.7); Triglycerides 58 mg/dL (0-150)
== END 2025-05-12 09:14 | disposition home or self-care (01) ==
PROVIDERS: PCP Nurse Practitioner; Visit Provider Internal Medicine
DX: E10.9 Type 1 diabetes mellitus without complications (principal); E16.0 Drug-induced hypoglycemia without coma; T38.3X5A Adverse effect of insulin and oral hypoglycemic [antidiabetic] drugs, initial encounter; X58.XXXA Exposure to other specified factors, initial encounter; E03.9 Hypothyroidism, unspecified
CPT/HCPCS: 36415; 80053; 80061; 82044; 83036; 84439; 84443